=== PATIENT | female | born 1965 | race Caucasian/White ===

== ENCOUNTER 2018-08-30 05:36 | Day surgery (SDC) | payer OTHER ==
[2018-08-30] VITALS (15 sets, daily range): BP systolic 115–142; BP diastolic 59–82; PULSE 78–90; RESP 12–23; Ht 162.6 cm; Wt 73.3 kg
[~2018-08-30] VITALS: Ht 162.6 cm; Wt 73.3 kg
[~2018-08-30 05:36] MED LIST: DOCU-144 PO; FERR325C PO; ORTNOV PO
[2018-08-30] MEDS ORDERED: ACETAMINOPHEN 500 MG TAB PO ONE ×2 (06:00→07:00)
[2018-08-30] MEDS ORDERED: CEFAZOLIN 2 GM/50 ML (PMX) 50 ML IVPB SCH (06:57)
[2018-08-30] MEDS ORDERED: DESFLURANE 15 MIN ONE (07:00)
--- NOTE | 2018-08-30 07:09 | PREAC ---
Date/Time of Note Date/Time of Note DATE: 08/30/18 TIME: 07:07 Anesthesia Eval and Record Evaluation Time Pre-Procedure Interview DATE: 08/30/18 TIME: 07:07 Age 53 Sex female NPO: 8 hrs Preoperative diagnosis menorrhagia, uterine fibroids Planned procedure hysteroscopy d&c, removal of myoma hysteroscopic ablation Past Medical History Past Medical History: Includes Heme: Anemia Surgery & Anesthesia Issues No known issue Meds Anticoagulation: No Beta Yaima within 24 hr: No Reason Beta Yaima not given: Pt. not on B-Yaima Discontinued Scripts Docusate Sodium* (Colace*) 100 Mg Capsule, 100 MG PO BID, #60 CAP Prov:BRYANDAVIDROXANNA PARKER 03/14/16 Ferrous Sulfate (Iron) 325 Mg Capsule.er, 325 MG PO TID, #45 CAP Prov:DAVID ADAMS DO 03/14/16 Norethindrone-Ethinyl Estradiol (Ortho-Novum ()) 0.035-1 Mg Tablet, 1 TAB PO DAILY for 30 Days, TAB Prov:ALONSO HEBERT PA-C 03/14/16 Current Medications Cefazolin Sodium/ Dextrose 50 ml @ 100 mls/hr OC IVPB ; Start 08/30/18 at 06:57; Stop 08/30/18 at 07:26 Meds reviewed: Yes Allergies Coded Allergies: No Known Allergy (Unverified , 08/30/18) Allergies Reviewed: Yes Labs/Studies Labs Reviewed: Reviewed by anesthesiologist test: Negative Studies: ECG (nsr, nml) Pre-procedure Exam Last vitals Vital Signs Date Temp Pulse Resp B/P (MAP) Pulse Ox O2 O2 Flow FiO2 Time Delivery Rate 08/30/18 98.8 06:42 08/30/18 88 18 142/82 99 Room Air 06:31 (102) Airway: Adequate mouth opening, Adequate thyromental dist Mallampati: Mallampati II Teeth: Normal (multiple missing teeth) Lung: Normal Heart: Normal ASA Physical Status ASA physical status: 2 Emergency: None Planned Anesthetic General/MAC: LMA Pre-operative Attestations Prior to commencing anesthesia and surgery, the patient was re-evaluated, there was verification of: *The patient's identity *The results of appropriate recent lab work and preoperative vital signs *The above evaluation not changing prior to induction *Anesthetic plan, risk benefits, alternative and complications discussed with patient/family; questions answered; patient/family understands, accepts and wishes to proceed. MIKO BULLARD Aug 30, 2018 07:09
[2018-08-30] MEDS ORDERED: PROPOFOL 40 ML ONE (07:26)
[2018-08-30] MEDS ORDERED: CEFAZOLIN 1 GM INJ ONE (07:26)
[2018-08-30] MEDS ORDERED: FENTAnyl 50 MCG/ML VIAL ONE (07:26)
[2018-08-30] MEDS ORDERED: LIDOCAINE 2% (SDV) 5 ML INJ ONE (07:26)
[2018-08-30] MEDS ORDERED: ONDANSETRON 4 MG INJ ONE (07:27)
[2018-08-30] MEDS ORDERED: DEXAMETHASONE 4 MG/ML 5 ML INJ ONE (07:27)
[2018-08-30] MEDS ORDERED: FAMOTIDINE 20 MG INJ ONE (07:27)
[2018-08-30] MEDS ORDERED: DIPHENHYDRAMINE 50 MG INJ IV PRN (07:30)
[2018-08-30] MEDS ORDERED: ONDANSETRON 4 MG INJ IV PRN (07:30)
[2018-08-30] MEDS ORDERED: LABETALOL HCL 20MG INJ IV PRN (07:30)
[2018-08-30] MEDS ORDERED: MEPERIDINE 25 MG INJ IV PRN (07:30)
[2018-08-30] MEDS ORDERED: HYDROmorphONE 1 MG/5 ML IV SYRINGE IV PRN ×3 (07:30)
[2018-08-30] MEDS ORDERED: OXYCODONE/ACETAMINOPHEN (5/325) TAB PO PRN ×2 (07:30)
[2018-08-30] MEDS ORDERED: morphine (1 MG/ML) 10ML SYRINGE IV PRN ×2 (07:30)
[2018-08-30] MEDS ORDERED: ALBUTEROL 0.083% (NEB) 2.5 MG/3 ML AMP HHN PRN (07:30)
[2018-08-30] MEDS ORDERED: FENTAnyl 50 MCG/ML VIAL IV PRN ×2 (07:30)
--- NOTE | 2018-08-30 08:49 | PAC ---
Date/Time of Note Date/Time of Note DATE: 08/30/18 TIME: 08:48 Post-Anesthesia Notes Post-Anesthesia Note Last documented vital signs Vital Signs Date Temp Pulse Resp B/P (MAP) Pulse Ox O2 O2 Flow FiO2 Time Delivery Rate 08/30/18 98.8 97.8 89 18 118/67 100 RA 06:42 084 5 08/30/18 88 18 142/82 99 Room Air 06:31 (102) Activity: WNL Respiratory function: WNL Cardiovascular function: WNL Mental status: Baseline Pain reasonably controlled: Yes Hydration appropriate: Yes Nausea/Vomiting absent: Yes MIKO BULLARD Aug 30, 2018 08:49
--- NOTE | 2018-08-30 09:23 | OPR ---
Date/Time of Note Date/Time of Note DATE: 08/30/18 TIME: 09:14 Operative Report Procedure Date: Aug 30, 2018 Preoperative Diagnosis Menometrorrhagia Anemia Fibroid Uterus Postoperative Diagnosis Same Operation/Procedure Performed Hysteroscopic Myomectomy [place] thermal endometrial Ablation not completed Surgeon Elsa Irvin MD Park Worker None Anesthesia Type: general Estimated Blood Loss: minimal Transfusion none Specimen Endometrial curettage and myoma Grafts/Implants none Tubes/Drains none Complications none Pt Condition Post Procedure: stable Disposition: PACU Procedure Description CONSENT: Please see preoperative notes from my office for the consent process. DESCRIPTION OF PROCEDURE: She was taken to the operating room and general anesthesia was induced. She was prepped and draped in the usual sterile fashion. Surgical time out was done. The patient and procedure were identified. The anterior lip of the cervix was grasped with a single-tooth tenaculum and [place] dilated. The hysteroscope Symphion was inserted and the endometrial cavity was visualized clearly. There was 2 small bulges in the uterine cavity consistent with submucosal myomas. At this time the resectoscope was inserted and the small myomas were resected completely. Dir ect curettage of the endometrial lining was also performed. The resectoscope was removed and the [place] Thermal Ablation camera inserted. Extra Tenaculum was applied to cervix. Seal check was done and passed. Ablation initiated. there was fluid loss and ablation was interrupted when the temperature was at 60 degrees. I attempted one more time by changing the position of the tenaculum, but I was not able to pass the seal test. Cooling period was done. Ablation was not completed. Camera was removed. The tenaculum was removed and there was no bleeding from the tenaculum site. The patient tolerated the procedure well. ELSA IRVIN MD Aug 30, 2018 09:23
--- NOTE | 2018-08-31 17:37 | RADRPT ---
Vent Rate: 79 bpm RR Interval: 0 msec [place] Interval: 128 msec QRS Duration: 74 msec QT Interval: 364 msec QTC Interval: 417 msec P-R-T [place]: 58 - 57 - 50 degrees Normal sinus rhythm Normal ECG Electronically Signed By: Haim Menard
== END 2018-08-30 10:40 | disposition home or self-care (01) ==
LOC: SDS 05:36
PROVIDERS: ATTEND Specialist
DX: D25.0 Submucous leiomyoma of uterus (principal); D64.9 Anemia, unspecified
CPT/HCPCS: 58561; 84703; 85025; 86850; 86900; 86901; 88305; 93005; J0690; J1100; J1170; J2405; J3010; Z7512; Z7610